=== PATIENT | female | born 1995 | race Caucasian/White ===

== ENCOUNTER 2019-09-13 11:41 | Inpatient (IN) ==
[2019-09-13] MEDS ORDERED: OXYTOCIN 30 UNITS/500 ML BAG IV PRN ×3 (12:09→18:27)
[2019-09-13 12:33] LABS: Hemoglobin 10.4 g/dL (12.0-16.0); Mean Corpuscular Hemoglobin 27.4 pg (25-34); Mean Corpuscular Volume 84.2 fL (80-100); Mean Platelet Volume 11.5 fL (7.4-10.4); Platelet Count 251 K/uL (130-400); RDW Coefficient of Variation 14.2 % (11.5-14.5); RDW Standard Deviation 43.3 fL (36.4-46.3); White Blood Count 12.19 K/uL (4.8-10.8)
[2019-09-13 12:40] LABS: Mean Corpuscular Hgb Conc 32.5 g/dL (32-36)
--- NOTE | 2019-09-13 13:08 | History & Physical Report ---
Date of Service September 13, 2019 Assessment & Plan (1) SROM (spontaneous rupture of membranes): - For augmentation of labor with Pitocin 1x2. - Labor plan includes epidural, anesthesia consult placed. - STD testing ordered at patient's request. (2) Encounter for induction of labor: History of Present Illness Chief Complaint: SROM Primary Care Provider: TUSHAR HENNING 24 yo F at 37.5 weeks for admission today for induction of labor due to SROM; no complications with this . States that this morning at 8 am had a large gush of clear fluid, no vaginal bleeding; reports good movement, but no timeable contractions. Second Hand Paper Machine Hx: no STI Hx, last PAP 02/2019 normal OB Hx: current 1st Social Hx: Pt's support person for this delivery is her mother; she is recently from father of baby. Labs (02/2019): Blood type: A+ Antibody screen: negative Hgb: 10.4 Hct: 32.0% WBC: 12.19 Plt: 251 Rubella status: immune VDLR/RPR: nonreactive Gonorrhea: negative Chlamydia: negative HIV: negative GBS: negative HbSAg: negative Glucose tolerance test x2: normal Allergies Allergy/AdvReac Type Severity Reaction Status Date / Time Sulfa (Sulfonamide Allergy anaphylaxis Verified 09/12/19 13:17 Antibiotics) Home Medications Home Medications Medication Instructions Recorded Confirmed Type omeprazole 40 mg capsule,delayed 40 mg PO DAILY 02/12/19 09/13/19 History release prenat.vits,addison,[id number] 1 tab PO DAILY 02/12/19 09/13/19 History sertraline 50 mg tablet 50 mg PO DAILY 02/12/19 09/13/19 History Patient History Medical History Anxiety and depression Hx of migraines Surgical History [place] teeth removed Family History Mother Anemia Heart disease Hypertension Thyroid disease Endometriosis Grandmother (Maternal) Osteoporosis Grandmother (Maternal) Breast cancer Other Diabetes Dyslipidemia Fibroid Ovarian cyst Social History Preferred Language: Romanian Communication Ability: Effective Animal Pathologist Required: No Beliefs That Will Affect Care: None marital status: Legally marital status details: Isaias irvin (24) retired Current Living Situation: Alone Current Living Situation Comment: Will stay with parents for one week after discharge current occupational status: employed current occupation: salesperson Other Information That Helps Us Care for You: No Feels Safe at Home: Yes Safety Concerns: Feels Safe At This Time Smoking Status: Never smoker Do You Dip or Chew Tobacco: No ; Second Hand Exposure: No ; Tobacco Cessation Education Requested by Patient: No Hx Alcohol Use: No Hx Substance Use: No Review of Systems Constitutional: denies fever, chills, sweats, headache Respiratory: denies SOB, difficulty breathing Cardiac: denies CP, chest palpitations, chest pressure Breast: denies breast pain : denies dysuria Physical Exam Physical Exam: General: patient is alert and oriented, in NAD Cardiac: +S1/S2, no murmurs rubs or gallops Respiratory: lungs CTA b/l, anteriorly and posteriorly, no wheezes rales or rhonchi, no increased work of breathing, symmetric chest rise, no respiratory distress Abdomen: Gravid, fundal height is term, + FHTs, baby is presenting vertex, no palpable contractions, EFW 6-7 Uterus: uterine fundus firm Lower Extremities: no LE edema or swelling, no deep calf pain, Sammy's sign negative b/l Genitourinary: Manual OB Exam: + cervical dilation 2 cm, + cervical effacement 90% and + station -2 OB Exam Monitor Tracing: + external FHT monitor used, + external uterine monitor used and + normal FHT variability Results & Data Vital Signs (Past 12 Hours) Vital Signs Temp Pulse Resp BP 09/13/19 12:39 36.8 C 103 H 18 107/67 09/13/19 12:26 103 H 107/67 Code Status & VTE Plan VTE Prophylaxis Plan VTE Prophylaxis will be ordered: Yes Monitoring External Monitor HR 150 with good variability Tocodynamometer no timeable contractions Resident Activity Tracking Resident Involvement: Resident Care Provided Care Provided: OB Delivery
[2019-09-13] MEDS: LACTATED RINGER'S 1,000 ML IV PRN ×2 (13:19→16:09)
[2019-09-13 13:58] LABS: Hepatitis B Surface Antigen Neg (Neg)
[2019-09-13 14:27] LABS: Hepatitis C IgG 13Yrs+Old_Rflx Neg (Neg)
[2019-09-13] MEDS ORDERED: ePHEDrine sulfate 50 MG/ML AMP ONE (14:35)
[2019-09-13] MEDS ORDERED: BUPIVACAINE 0.25% 30 ML VIAL ONE (14:35)
[2019-09-13] MEDS ORDERED: fentaNYL citrate 100 MCG/2 ML VIAL ONE (14:35)
[2019-09-13] MEDS ORDERED: fentaNYL 2MCG/ML ROPIV 1.25MG/ML 100 ML BAG EPI ONE (14:36)
[2019-09-13] MEDS ORDERED: fentaNYL 2MCG/ML ROPIV 1.25MG/ML 100 ML BAG EPI PRN (15:11)
[2019-09-13] MEDS ORDERED: DiphenhydrAMINE HCL 50 MG/ML VIAL IV PRN (15:11)
[2019-09-13] MEDS ORDERED: NALOXONE HCL 0.4 MG/1 ML VIAL/CARP IV PRN (15:11)
[2019-09-13] MEDS ORDERED: ePHEDrine sulfate 50 MG/ML AMP IV PRN (15:11)
[2019-09-13] MEDS ORDERED: ONDANSETRON INJ 2 MG/ML 2 ML VIAL IV PRN (15:11)
[2019-09-13] MEDS ORDERED: NALBUPHINE HCL INJ 10 MG/ML AMP IV PRN (15:11)
[2019-09-13] MEDS ORDERED: NALOXONE HCL 1 MG in SODIUM CHLORIDE 0.9% 1000ML 1,000 ML IV PRN (15:11)
--- NOTE | 2019-09-13 15:14 | Anesthesiology Consultation ---
Date of Service September 13, 2019 Assessment & Plan Chart Review Chart Review: Patient NOT seen in Pre Admission Testing and Acceptable Risk for Labor Epidural Consults Requested none ASA ASA2 Proposed Anesthesia Anesthesia Type: Labor Epidural and CSE Risk / Benefits Reviewed With: PT / POA / Parent / Guardian, Accepts Plan and Informed Consent Obtained History Height/Weight Height: 5 ft 4 in Weight: 95.148 kg Allergies Allergy/AdvReac Type Severity Reaction Status Date / Time Sulfa (Sulfonamide Allergy anaphylaxis Verified 09/12/19 13:17 Antibiotics) Medications Home Medications Medication Instructions Recorded Confirmed Last Taken omeprazole 40 mg capsule,delayed 40 mg PO DAILY 02/12/19 09/13/19 09/13/19 02:00 release prenat.vits,addison,[id number] 1 tab PO DAILY 02/12/19 09/13/19 09/13/19 02:00 sertraline 50 mg tablet 50 mg PO DAILY 02/12/19 09/13/19 09/13/19 02:00 Active Medications Generic Name Dose Route Start Last Admin Trade Name Freq PRN Reason Stop Dose Admin Lactated Ringer's 1,000 mls @ 125 mls/hr 09/13/19 12:09 09/13/19 14:35 Lr IV 09/15/19 12:08 999 mls/hr .Q8H PRN Infusion L&D Protocol Protocol Oxytocin 30 units in 500 mls @ 3 mls/hr 09/13/19 12:09 09/13/19 14:14 Pitocin IV 09/15/19 12:08 0.18 units/hr .Q24H PRN 3 mls/hr Labor Induction/Augmentation Titration Protocol 0.18 UNITS/HR NPO Date Last Intake of Fluids: 09/13/19 Time Last Intake of Fluids: 14:00 Date Last Intake of Solids: 09/13/19 Time Last Intake of Solids: 08:00 Past Medical History Medical History Anxiety and depression Hx of migraines Exercise / Class Metabolic Activity II 4-5 Yardwork/Stairs/Walk up hill Past Family History Family History Mother Anemia Heart disease Hypertension Thyroid disease Endometriosis Grandmother (Maternal) Osteoporosis Grandmother (Maternal) Breast cancer Other Diabetes Dyslipidemia Fibroid Ovarian cyst Past Surgical History Surgical History [place] teeth removed Past Anesthesia History No Hx of Anesthesia Complications and No Family Hx of Anesthesia Complications History of PONV No Hx of PONV and No Hx of Motion Sickness Social History Smoking Status: Never smoker Do You Dip or Chew Tobacco: No Hx Alcohol Use: No Hx Substance Use: No Review of Systems no chest pain or sob Physical Exam Vital Signs Last Vital Signs Temp 36.8 C 09/13/19 12:39 Pulse 121 H 09/13/19 15:09 Resp 18 09/13/19 12:39 BP 143/67 H 09/13/19 15:05 Pulse Ox 100 09/13/19 15:09 ENMT Mouth: no TMJ abnormality Thyromental Distance: > or= 3.5 Finger Breadths Mallampati Class: II Neck normal visual inspection Respiratory normal respiratory effort Auscultation: lungs clear to auscultation bilaterally Cardiovascular Rate/Rhythm: regular rate and regular rhythm Musculoskeletal Spine: normal cervical ROM Neurologic moves all extremities Psychiatric Orientation: alert and oriented x 3 Testing Laboratory Results 09/13/19 12:15
--- NOTE | 2019-09-13 17:42 | Delivery Summary ---
Vaginal Delivery Summary Date of Service September 13, 2019 Vaginal Delivery Summary DIAGNOSES: 1. Veloz intrauterine at 37w5d gestation. 2. SROM, Augmentation of labor. 3. Group B Streptococcus Neg. PROCEDURE: Spontaneous vaginal delivery and repair of second degree laceration. SURGEON: Cary Ventura MD. PULL SOCKET ASSEMBLER: None. ESTIMATED BLOOD LOSS: 350 mL. COMPLICATIONS: None. PLACENTA: Spontaneous and intact with a 3-vessel cord. DISPOSITION: Stable to labor and delivery. DESCRIPTION: The patient pushed well and brought the head to in DOA position. The infant's head was allowed to deliver with contraction force and no further active pushing, with the perineum protected during this time. The shoulders delivered easily with a maternal pushing effort. There was no nuchal cord. The left shoulder was anterior. The shoulders and body delivered without any difficulty, and the infant was placed on the maternal abdomen. It was vigorous and moving all extremities, and making respiratory efforts. The cord was doubly clamped by the MD and then cut by the patient's mother. The placenta delivered spontaneously and was noted to be intact and with a 3VC. The cervix, vagina and perineum were examined and were found to have a second degree laceration which was repaired with vicryl suture in the usual manner. The fundus was firm and lochia minimal immediately after delivery.
[2019-09-13] MEDS ORDERED: bisacodyL 10 MG SUPP PR PRN (18:27)
[2019-09-13] MEDS ORDERED: BENZOCAINE 20% AER SPR 82.5 GM CAN EXT PRN (18:27)
[2019-09-13] MEDS ORDERED: HYDROCORTISONE ACETATE 25 MG SUPP PR PRN (18:27)
[2019-09-13] MEDS ORDERED: DIPHTHERIA/TETANUS/PERTUSSIS 0.5 ML SYR/VIAL IM ONE (18:27)
[2019-09-13] MEDS ORDERED: SUPERCREAM 0.870% 15 GM JAR EXT PRN (18:27)
[2019-09-13] MEDS ORDERED: ACETAMINOPHEN 325 MG TAB PO PRN (18:27)
--- NOTE | 2019-09-13 18:51 | Anesthesia Procedure Note ---
Date of Service September 13, 2019 Anesthesia Post Epidural Note Vital Signs Vital Signs: Temp Pulse Resp BP Pulse Ox 37.0 C 98 H 18 131/78 98 09/13/19 17:35 09/13/19 18:50 09/13/19 18:20 09/13/19 18:50 09/13/19 17:34 Pain Intensity Lower Back: Pain Intensity: 3 Notes Mental Status: alert / awake / arousable and participated in evaluation Nausea / Vomiting: adequately controlled Pain: adequately controlled Airway Patency, RR, SpO2: stable & adequate BP & HR: stable & adequate Hydration State: stable & adequate Neuraxial Anesthesia: was administered and sensory block is resolving Anesthetic Complications: no major complications apparent and Pt Satisfied with anesthetic care Epidural: Removed without complications and With tip intact
[2019-09-13] MEDS: IBUPROFEN 600 MG TAB PO PRN ×2 (19:09→23:20)
[2019-09-13] MEDS: DOCUSATE SODIUM 100 MG CAP PO SCH (21:13)
[2019-09-13] MEDS: SERTRALINE HCL 50 MG TABLET PO SCH (21:54)
--- NOTE | 2019-09-14 06:06 | Obstetrical Progress Note ---
Date of Service <Charley Bowen DO - Last Filed: 09/14/19 06:36> September 14, 2019 Assessment & Plan <Charley Bowen DO - Last Filed: 09/14/19 06:36> (1) Encounter for care and examination after delivery: - doing well and without complaints this AM. - will continue routine care. - following discharge will have follow up in [address] Ventura. Subjective <Charley Bowen DO - Last Filed: 09/14/19 06:36> 24 yo F PPD #1 following with 2nd degree laceration; doing well this AM; minimal abdominal cramping/pain; voiding well; tolerating meals overnight, able to ambulate well around the room. Some persistent spotting this morning but improved from yesterday. No concerns or complaints, seen walking around the room holding her . which she reports is going well, however her often has to be woken up to feed. Review of Systems Constitutional: denies fever, chills, sweats, headache Respiratory: denies SOB, difficulty breathing Cardiac: denies CP, chest palpitations, chest pressure Breast: denies breast pain : denies dysuria Physical Exam <Charley Bowen DO - Last Filed: 09/14/19 06:36> General: patient is alert and oriented, in NAD Cardiac: +S1/S2, no murmurs rubs or gallops Respiratory: lungs CTA b/l, anteriorly and posteriorly, no wheezes rales or rhonchi, no increased work of breathing, symmetric chest rise, no respiratory distress Abdomen: soft, NT, +bowel sounds Uterus: uterine fundus firm, palpable below the umbilicus Lower Extremities: no LE edema or swelling, no deep calf pain, Sammy's sign negative b/l Results & Data <DO Ambrosio Aleman Last Filed: 09/14/19 06:36> Vital Signs (Past 12 Hours) Vital Signs Temp Pulse Pulse Resp BP BP Pulse Ox 09/14/19 03:15 36.8 C 73 18 120/77 09/13/19 23:20 37.2 C 72 18 117/71 09/13/19 20:35 37.0 C 84 20 133/80 99 09/13/19 19:35 100 H 128/70 09/13/19 19:20 94 H 126/70 09/13/19 19:05 89 18 132/74 09/13/19 18:50 98 H 131/78 09/13/19 18:36 89 127/73 09/13/19 18:20 94 H 18 118/58 L <Cary Ventura MD - Last Filed: 09/14/19 06:44> Co-Signing Physician Notes I have reviewed the resident's note and examined the patient myself, and agree with the note above. Resident Activity Tracking <Charley Bowen DO - Last Filed: 09/14/19 06:36> Resident Involvement: Resident Care Provided Care Provided: OB Delivery
[2019-09-14 06:07] LABS: Hematocrit (blood only) 27.3 % (37-47); Mean Corpuscular Hemoglobin 27.8 pg (25-34); Mean Corpuscular Volume 84.3 fL (80-100); Mean Platelet Volume 11.4 fL (7.4-10.4); Platelet Count 204 K/uL (130-400); RDW Coefficient of Variation 14.1 % (11.5-14.5); RDW Standard Deviation 43.2 fL (36.4-46.3); Red Blood Count 3.24 M/uL (4.2-5.4); White Blood Count 12.85 K/uL (4.8-10.8)
[2019-09-14] MEDS: DOCUSATE SODIUM 100 MG CAP PO SCH ×2 (08:47→21:08)
[2019-09-14] MEDS: IBUPROFEN 600 MG TAB PO PRN ×2 (08:48→15:41)
[2019-09-14] MEDS: PRENATAL VITAMIN 1 TAB PO SCH (08:48)
[2019-09-14] MEDS ORDERED: SERTRALINE HCL 50 MG TABLET PO SCH (09:00)
[2019-09-14] MEDS: PANTOprazole 40 MG TAB PO SCH (09:32)
[2019-09-14] MEDS ORDERED: bisacodyL 5 MG TABEC PO SCH (20:00)
[2019-09-14] MEDS: SERTRALINE HCL 50 MG TABLET PO SCH (21:08)
--- NOTE | 2019-09-15 07:02 | Obstetrical Progress Note ---
Date of Service <Charley Andrés, DO - Last Filed: 09/15/19 07:24> September 15, 2019 Assessment & Plan <Charley KathleenDO mars - Last Filed: 09/15/19 07:24> (1) Encounter for care and examination after delivery: - doing well from an obstetric standpoint. - for discharge today. - following discharge will have follow up in [address] Ventura. - went over discharge instructions and answered all patient's questions. Subjective <Charleyshadi Bowen DO - Last Filed: 09/15/19 07:24> 24 yo F PPD #1 following with 2nd degree laceration; doing well this AM; minimal abdominal cramping/pain; voiding well; tolerating meals overnight, able to ambulate well around the room. Some spotting this morning but improved from yesterday. No concerns or complaints. which she reports is going better today with regard to her 's interest, however her milk production is minimal which is a concern to her. Review of Systems Constitutional: denies fever, chills, sweats, headache Respiratory: denies SOB, difficulty breathing Cardiac: denies CP, chest palpitations, chest pressure Breast: denies breast pain : denies dysuria Physical Exam <Charley Bowen DO - Last Filed: 09/15/19 07:24> General: patient is alert and oriented, in NAD Cardiac: +S1/S2, no murmurs rubs or gallops Respiratory: lungs CTA b/l, anteriorly and posteriorly, no wheezes rales or rhonchi, no increased work of breathing, symmetric chest rise, no respiratory distress Abdomen: soft, NT, +bowel sounds Uterus: uterine fundus firm, palpable below the level of the umbilicus Lower Extremities: no LE edema or swelling, no deep calf pain, Sammy's sign negative b/l Results & Data <Charley Bowen DO - Last Filed: 09/15/19 07:24> Vital Signs (Past 12 Hours) Vital Signs Temp Pulse Resp BP 09/15/19 00:01 36.8 C 74 18 123/79 <Sushant Rangel Jr, MD, FACOG - Last Filed: 09/15/19 07:53> Co-Signing Physician Notes Resident Physician Supervision Note: I was present with Dr. Croft during the history and exam. I discussed the case with the resident and agree with the findings and plan as documented in the note. Any exceptions or clarifications are listed here: Desires d/c, instructions given, f/u in 6 weeks for check. Documented By: Sushant Rangel Jr, MD, FACOG Resident Activity Tracking <Charley Bowen, DO - Last Filed: 09/15/19 07:24> Resident Involvement: Resident Care Provided Care Provided: OB Delivery
[2019-09-15] MEDS: PRENATAL VITAMIN 1 TAB PO SCH (07:46)
[2019-09-15] MEDS: DOCUSATE SODIUM 100 MG CAP PO SCH (07:46)
[2019-09-15] MEDS: PANTOprazole 40 MG TAB PO SCH (07:46)
[2019-09-15] MEDS: IBUPROFEN 600 MG TAB PO PRN (07:46)
[2019-09-15 10:29] LABS: Chlamydia Trach RNA NOT DETECTED (NOT DETECTED); GC (Neis gonorrhoeae) RNA NOT DETECTED (NOT DETECTED)
== END 2019-09-15 10:50 | disposition home or self-care (01) | DRG 807 ==
LOC: OPB 11:41 → 4S1 11:43 → 4S2 20:03

== ENCOUNTER 2023-01-18 00:17 | Inpatient (IN) ==
[2023-01-18] MEDS ORDERED: LIDOCAINE 1% LOCAL 20 ML VIAL INFIL PRN (01:08)
[2023-01-18] MEDS ORDERED: OXYTOCIN 30 UNITS/500 ML BAG IV PRN ×2 (01:08→07:48)
[2023-01-18 01:59] LABS: Hematocrit (blood only) 33.5 % (37.0-47.0); Hemoglobin 11.7 g/dl (12.0-16.0); Mean Corpuscular Hemoglobin 29.6 pg (25.0-34.0); Mean Corpuscular Hgb Conc 34.9 g/dL (32.0-36.0); Mean Corpuscular Volume 84.8 fL (80.0-100.0); Mean Platelet Volume 11.6 fL (9.4-12.4); Platelet Count 191 K/uL (130-400); RDW Coefficient of Variation 14.9 % (11.5-14.5); Red Blood Count 3.95 M/uL (4.20-5.40); White Blood Count 10.03 K/ul (4.8-10.8)
[2023-01-18] MEDS: LACTATED RINGER'S 1,000 ML IV PRN ×2 (02:05→03:10)
[2023-01-18] MEDS ORDERED: LIDOCAINE 2%/EPINEPHRINE 1:200,000 20 ML PF ONE (02:10)
[2023-01-18] MEDS ORDERED: fentaNYL citrate PF 100 MCG/2 ML VIAL ONE (02:10)
[2023-01-18] MEDS ORDERED: ePHEDrine sulfate 50 MG/ML AMP ONE (02:10)
[2023-01-18] MEDS ORDERED: BUPIVACAINE 0.25% PF 30 ML VIAL ONE (02:10)
[2023-01-18] MEDS ORDERED: SODIUM CHLORIDE 0.9% PF INJ 10 ML VIAL ONE (02:10)
[2023-01-18] MEDS ORDERED: fentaNYL 2MCG/ML ROPIVACAINE 1.25MG/ML 100 ML BAG EPI ONE (02:11)
--- NOTE | 2023-01-18 03:21 | Anesthesiology Consultation ---
Date of Service January 18, 2023 Assessment & Plan Chart Review Chart Review: Acceptable Risk for Labor Epidural Consults Requested none History Height/Weight Height: 5 ft 4 in Weight: 87.906 kg Allergies Allergy/AdvReac Type Severity Reaction Status Date / Time Sulfa (Sulfonamide Allergy anaphylaxis Verified 01/17/23 12:50 Antibiotics) Medications Home Medications Medication Instructions Recorded Confirmed Last Taken omeprazole 40 mg capsule,delayed 40 mg PO DAILY 02/12/19 01/18/23 09/13/19 02:00 release prenat.vits,addison,[id number] 1 tab PO DAILY 02/12/19 01/18/23 09/13/19 02:00 Active Medications Generic Name Dose Route Start Last Admin Trade Name Freq PRN Reason Stop Dose Admin Lactated Ringer's 1,000 mls @ 125 mls/hr 01/18/23 01:08 01/18/23 03:13 Lr IV 01/20/23 01:07 125 mls/hr .Q8H PRN Infusion L&D Protocol Protocol Past Medical History Medical History Anxiety and depression Hx of migraines Varicella vaccination Past Family History Family History Mother Anemia Heart disease Hypertension Thyroid disease Endometriosis Grandmother (Maternal) Osteoporosis Grandmother (Maternal) Breast cancer Other Diabetes Dyslipidemia Fibroid Ovarian cyst Denies family history of Ovarian cancer Colorectal cancer Past Surgical History Surgical History [place] teeth removed Social History Smoking Status: Never smoker Do You Dip or Chew Tobacco: No Hx Alcohol Use: No Hx Substance Use: No substance use type: does not use Physical Exam Vital Signs Last Vital Signs Temp 36.9 C 01/18/23 03:10 Pulse 83 01/18/23 03:19 Resp 20 01/18/23 00:38 BP 111/65 01/18/23 03:19 Pulse Ox 99 01/18/23 03:17 Testing Laboratory Results 01/18/23 01:34
[2023-01-18] MEDS ORDERED: diphenhydrAMINE 50 MG/ML VIAL IV PRN (03:23)
[2023-01-18] MEDS ORDERED: BUPIVACAINE 0.25% PF 30 ML VIAL EPI PRN (03:23)
[2023-01-18] MEDS ORDERED: BUPIVACAINE 0.25% PF 30 ML VIAL EPI STA (03:23)
[2023-01-18] MEDS ORDERED: fentaNYL citrate PF 100 MCG/2 ML VIAL EPI STA (03:23)
[2023-01-18] MEDS ORDERED: fentaNYL 2MCG/ML ROPIVACAINE 1.25MG/ML 100 ML BAG EPI PRN (03:23)
[2023-01-18] MEDS ORDERED: SODIUM CHLORIDE 0.9% PF INJ 10 ML VIAL EPI PRN (03:23)
[2023-01-18] MEDS ORDERED: fentaNYL citrate PF 100 MCG/2 ML VIAL EPI PRN (03:23)
[2023-01-18] MEDS ORDERED: NALBUPHINE HCL INJ 10 MG/ML AMP IV PRN (03:23)
[2023-01-18] MEDS ORDERED: ePHEDrine sulfate 50 MG/ML AMP IV PRN (03:23)
[2023-01-18] MEDS ORDERED: SODIUM CHLORIDE 0.9% PF INJ 10 ML VIAL EPI STA (03:23)
[2023-01-18] MEDS ORDERED: ONDANSETRON INJ 2 MG/ML 2 ML VIAL IV PRN (03:23)
[2023-01-18] MEDS ORDERED: LIDOCAINE 2% MPF LOCAL 5 ML VIAL EPI PRN (03:23)
[2023-01-18] MEDS ORDERED: ROPIVACAINE 0.5% PF 5 MG/ML 20 ML VIAL EPI PRN (03:23)
[2023-01-18] MEDS ORDERED: NALOXONE HCL 1 MG in SODIUM CHLORIDE 0.9% 1,000 ML IV PRN (03:23)
[2023-01-18] MEDS ORDERED: NALOXONE HCL 0.4 MG/1 ML VIAL/CARP IV PRN (03:23)
[2023-01-18] MEDS ORDERED: LIDOCAINE 2%/EPINEPHRINE 1:200,000 20 ML PF EPI STA (03:23)
--- NOTE | 2023-01-18 07:32 | Delivery Summary ---
Vaginal Delivery Summary Date of Service January 18, 2023 Vaginal Delivery Summary Spontaneous vaginal delivery the patient arrived in active labor requested epidural and membranes ruptured spontaneously heart rate was category 1 she progressed to fully dilated she delivered the baby in occiput anterior position clear fluid no nuchal cord gentle traction the baby no excessive force used live vigorous female infant cord clamped and cut cord blood obtained placenta removed with gentle traction second-degree tear repaired with 3-0 Vicryl sponge and instrument counts are correct oxytocin of the head begun at the delivery of the placenta and uterine tone improved estimated blood loss 200 mL
[2023-01-18] MEDS ORDERED: HYDROCORTISONE ACETATE 25 MG SUPP PR PRN (07:48)
[2023-01-18] MEDS ORDERED: bisacodyL 10 MG SUPP PR PRN (07:48)
[2023-01-18] MEDS ORDERED: DIPHTHERIA/TETANUS/PERTUSSIS Vaccine (Tdap, Age 7+yrs) 0.5mL SYR/VL IM ONE (07:48)
[2023-01-18] MEDS ORDERED: BENZOCAINE 20% SPRY 85 APPLN/85 GM CAN EXT PRN (07:48)
[2023-01-18] MEDS ORDERED: ACETAMINOPHEN 325 MG TAB PO PRN (07:48)
[2023-01-18] MEDS: DOCUSATE SODIUM 100 MG CAP PO SCH ×2 (09:04→19:34)
[2023-01-18] MEDS: PRENATAL VITAMIN 1 TAB PO SCH (09:04)
[2023-01-18] MEDS: PANTOprazole 40 MG TAB PO SCH (10:32)
--- NOTE | 2023-01-18 12:40 | Anesthesia Procedure Note ---
Date of Service January 18, 2023 Anesthesia Post Epidural Note Vital Signs Vital Signs: Temp Pulse Resp BP Pulse Ox O2 Del Method 37 C 74 18 119/71 97 Room Air 01/18/23 11:40 01/18/23 11:40 01/18/23 11:40 01/18/23 11:40 01/18/23 07:17 01/18/23 11:40 Notes Mental Status: alert / awake / arousable and participated in evaluation Patient Amnestic to Procedure: No Nausea / Vomiting: adequately controlled Pain: adequately controlled Airway Patency, RR, SpO2: stable & adequate BP & HR: stable & adequate Hydration State: stable & adequate Neuraxial Anesthesia: was administered and sensory block is resolving Anesthetic Complications: no major complications apparent and Pt Satisfied with anesthetic care Epidural: Removed without complications and With tip intact
[2023-01-18] MEDS: IBUPROFEN 600 MG TAB PO PRN ×2 (13:32→19:34)
--- NOTE | 2023-01-19 04:45 | Obstetrical Progress Note ---
Date of Service January 19, 2023 Assessment & Plan (1) Encounter for care and examination after delivery: Plan s/p day 1 Viral signs reviewed and WNL Blood type A+, Rubella immune, GBS negative Pt doing well clinically Encourage ambulation Monitor and control pain with Motrin prn Regular diet, Monitor Lochia Encourage breast feeding D/C today, instruction reviewed with patient Admission and Anticipated Discharge Date Admission Date: January 18, 2023 Supervising Physician Co-Signing Physician Notes Resident Physician Supervision Note: I interviewed and examined the patient. Discussed with Dr. Amol Corona and agree with findings and plan as documented in the note. Any exceptions or clarifications are listed here: Doing well. Plan d/c. Instructions given. Documented By: Irena Ha MD, FACOG Subjective 27 yo post- day 1 s/p Ambulation: ambulating normally Voiding: no voiding problems Passing Gas:: Yes Diet Tolerance:: regular diet Lochia:: Small Feeding Type: breast feeding Current Pain Level: Minimal Resting comfortably this AM in NAD. Denies PINON, CP, SOB, N/V/D, LE pain/swelling. Review of Systems Review of Systems: All systems reviewed & are unremarkable except as noted in HPI & below Physical Exam Physical Exam: General: patient resting comfortably, NAD, non-toxic in appearance, AA&O x 4, answers questions appropriately. Skin: warm, dry, intact HEENT: NC/AT, anicteric sclera, conjunctiva without injection, moist mucus membranes. Heart: +S1/S2, regular, no m/r/g Lungs: equal air entry bilaterally, no rales/rhonchi/wheezes Abd: +BS, soft, NT/ND, uterine fundus firm at umbilicus Ext: warm, no clubbing/cyanosis or edema, Sammy's neg. Neuro: nonfocal, patient AA&O x 4, speech intact, no facial droop, moving all extremities on command. Results & Data Vital Signs (Past 12 Hours) Vital Signs Temp Pulse Resp BP Pulse Ox O2 Del Method 01/19/23 03:41 36.9 C 84 18 120/76 96 Room Air 01/18/23 19:40 36.4 C L 71 18 126/80 99 Room Air 01/18/23 23:47 36.9 C 76 16 118/75 95 Room Air Resident Activity Tracking Resident Involvement: Resident Care Provided Care Provided: OB Delivery
[2023-01-19 06:39] LABS: Hematocrit (blood only) 31.7 % (37.0-47.0); Hemoglobin 10.5 g/dl (12.0-16.0); Mean Corpuscular Hgb Conc 33.1 g/dL (32.0-36.0); Mean Corpuscular Volume 87.6 fL (80.0-100.0); Mean Platelet Volume 12.2 fL (9.4-12.4); Platelet Count 162 K/uL (130-400); RDW Standard Deviation 48.5 fL (36.4-46.3); Red Blood Count 3.62 M/uL (4.20-5.40); White Blood Count 9.85 K/ul (4.8-10.8)
[2023-01-19] MEDS: PRENATAL VITAMIN 1 TAB PO SCH (08:12)
[2023-01-19] MEDS: DOCUSATE SODIUM 100 MG CAP PO SCH (08:13)
[2023-01-19] MEDS: PANTOprazole 40 MG TAB PO SCH (08:13)
[2023-01-19] MEDS ORDERED: bisacodyL 5 MG TABEC PO SCH (20:00)
== END 2023-01-19 12:40 | disposition home or self-care (01) | DRG 807 ==
LOC: OPB 00:17 → 4S1 00:25 → 4E2 09:45